=== PATIENT | male | born 1940 | race Two or more races ===

== ENCOUNTER 2018-02-02 15:57 | Outpatient (CLI) | payer OTHER | END 2018-02-02 16:11 | disposition home or self-care (01) | LOC: RAD 501 15:57 | DX: J44.9 Chronic obstructive pulmonary disease, unspecified (principal) ==

== ENCOUNTER 2018-10-08 10:15 | Outpatient (CLI) | payer OTHER | END 2018-10-08 17:13 | disposition home or self-care (01) | LOC: RAD 10:15 | DX: J20.8 Acute bronchitis due to other specified organisms (principal); R06.09 Other forms of dyspnea ==

== ENCOUNTER → 2019-05-13 | Outpatient (CLI) | payer OTHER | END | disposition home or self-care (01) | LOC: RAD 12:41 | DX: S92.901A Unspecified fracture of right foot, initial encounter for closed fracture (principal) ==

== ENCOUNTER 2019-06-29 13:17 | Outpatient (CLI) | payer OTHER | END 2019-06-29 13:26 | disposition home or self-care (01) | LOC: SONOGRAMA 13:17 | DX: S93.492A Sprain of other ligament of left ankle, initial encounter (principal) ==

== ENCOUNTER 2020-06-16 08:17 | Outpatient (CLI) | payer OTHER | END 2020-06-16 08:24 | disposition HB | LOC: SONOGRAMA 08:17 | PROVIDERS: ATTEND Otolaryngology Otology & Neurotology | DX: R10.84 Generalized abdominal pain (principal); K76.0 Fatty (change of) liver, not elsewhere classified ==

== ENCOUNTER 2021-01-09 08:00 | Outpatient (CLI) | payer OTHER | END 2021-01-09 08:30 | disposition home or self-care (01) | LOC: PPH VACUNA 08:00 | DX: Z23 Encounter for immunization (principal) ==

== ENCOUNTER 2021-09-21 07:44 | Outpatient (CLI) | payer OTHER | END 2021-09-21 07:52 | disposition home or self-care (01) | LOC: SONOGRAMA 07:44 | PROVIDERS: ATTEND Specialist | DX: K76.0 Fatty (change of) liver, not elsewhere classified (principal) ==